=== PATIENT | female | born 1990 | race African-American/Black ===

== ENCOUNTER 2020-12-03 07:44 | Observation (INO) | payer BC, SELFPAY ==
[2020-12-03] VITALS (10 sets, daily range): BP systolic 111; BP diastolic 58; PULSE 79–92; O2SAT 98–100; BMI 27.8
--- NOTE | 2020-12-03 08:14 | OBADM ---
This patient, Tory Lerma, admitted to the OB room OB Post 116 for observation. Patient was oriented to hospital policies and general routines including ID bracelet, bed and alarms, visiting hours, pain management, procedures, bathroom and other care routines, personal items, smoking policy, room service/diet, call light, and visiting hours. Patient was encouraged to report perceived risks to care and to ask questions if she does not understand what she is told or what she should do.
[2020-12-03 08:54] LABS: Add Urine Microscopic? YES; Appearance Urine Cloudy (Clear); Bilirubin Urine Negative (Negative); Blood Urine Negative (Negative); Color Urine Yellow (Yellow); Glucose Urine UA Negative (Negative); Ketones Urine Negative (Negative); Leukocyte Esterase Ur Negative LEU/UL (Negative); Mucus Urine Rare /lpf; Nitrate Urine Negative (Negative); Protein Urine Negative (Negative); RBC Urine 0-2 /hpf (0-2); Specific Grav Ur 1.015 (1.001-1.035); Squamous Epithelial Cell Urine Occasional /hpf (Few); Urobilinogen Urine Negative mg/dL (<2.0); WBC Urine 0-3 /hpf
--- NOTE | 2020-12-03 10:19 | PC.NURSE ---
Pt informs RN that the Doctor had put her on pelvic rest at 0959. She is unclear if the doctor removed that restriction. Pt had intercourse with 48 hours of admission. RN instructed pt to remain on pelvic rest until her appt on December 06 when she will have a clarification discussion regarding pelvic rest.
--- NOTE | 2020-12-08 11:33 | P.PNOB_ITS ---
OB - Triage/Final Diagnosis Visit Information Comments/Additional reasons for admission: I have assessed the risk for this patient, Tory Lerma, and determined that she would benefit from observation care. Evaluation Laboratory results: Laboratory Tests 12/03/20 08:43 Urine Color Yellow Urine Appearance Cloudy H Urine pH 7.0 Ur Specific Grass Range 1.015 Urine Protein Negative Urine Glucose (UA) Negative Urine Ketones Negative Ur Blood (Man) Negative Urine Nitrate Negative Urine Bilirubin Negative Urine Urobilinogen Negative Leukocyte Esterase Rfl Negative Urine RBC 0-2 Urine WBC 0-3 Ur Squamous Epith Cells Occasional Urine Mucus Rare Final Diagnosis (1) contractions: Code(s): O47.9 - False labor, unspecified Status: Acute
== END 2020-12-03 10:15 | disposition home or self-care (01) ==
PROVIDERS: Admitting Provider Obstetrics & Gynecology; Visit Provider Obstetrics & Gynecology
DX: O47.9 False labor, unspecified (principal); Z3A.00 Weeks of gestation of pregnancy not specified
CPT/HCPCS: 81001; G0378; G0379

== ENCOUNTER 2021-01-09 15:23 | Outpatient (RCR) | payer BC, SELFPAY ==
--- NOTE | ~2021-01-09 | US_ITS ---
EXAMINATION: US OB BPP wo non-stress DATE: 01/05/2021 16:50 INDICATION: Intrauterine growth retardation. Assess biophysical profile. TECHNIQUE: Real-time pelvic ultrasound was performed. The interpreting radiologist was not present fo r the study. COMPARISON: None. FINDINGS: There is a single living fetus in vertex presentation. The placenta is anterior. heart rate is 157 beats per minute (bpm). Biophysical profile performed by the technologist: breathing (30 sec sustained breathing in 30 minutes): 2 out of 2 movement (3 gross body movements in 30 minutes): 2 out of 2 tone (one episode of jioyham-vbnxsilad-yavptyp limb movement): 2 out of 2 Amniotic fluid pocket (2 cm): 2 out of 2 Total score: 8 out of 8 IMPRESSION: 1. Single living fetus in vertex presentation with heart rate of 157 bpm. 2. Biophysical profile 8 out of 8. Reviewed, dictated and finalized at location A.
[2021-01-09 16:37] VITALS: BP 115/60; PULSE 91
== END 2021-01-16 08:15 | disposition home or self-care (01) ==
LOC: ANHOBOP 15:23
PROVIDERS: Visit Provider Obstetrics & Gynecology
DX: O36.5930 Maternal care for other known or suspected poor fetal growth, third trimester, not applicable or unspecified (principal); Z3A.35 35 weeks gestation of pregnancy; Z3A.36 36 weeks gestation of pregnancy
CPT/HCPCS: 59025; 76819

== ENCOUNTER 2021-01-14 07:25 | Inpatient (IN) | payer BC, SELFPAY ==
[2021-01-14] VITALS (28 sets, daily range): BP systolic 93–134; BP diastolic 53–101; PULSE 69–111; RESP 14–18; TEMP 36.2–37.3; O2SAT 100; BMI 28.2
[2021-01-14 09:05] LABS: Basophils Absolute Auto 0.1 K/mm3 (0.0-0.1); Basophils Percent Auto 0.6 % (0.2-1.2); Eosinophils Absolute Auto 0.1 K/mm3 (0-0.3); Eosinophils Percent Auto 0.5 % (0-4.4); Hematocrit 37.9 % (37.0-47.0); Hemoglobin 12.8 g/dL (12.0-15.0); Immature Granulocyte Absolute 0.05 K/mm3 (0.00-0.031); Immature Granulocyte Percent A 0.4 % (0-0.5); Lymphocytes Absolute Auto 1.72 K/mm3 (0.9-3.2); Lymphocytes Percent Auto 14.5 % (18.3-44.2); Mean Corpuscular HGB Conc 33.8 g/dl (32-36); Mean Corpuscular Hemoglobin 32.5 pg (26-34); Mean Corpuscular Volume 96.2 fl (80-100); Mean Platelet Volume 10.8 fl (7.4-10.4); Monocytes Absolute Auto 0.9 K/mm3 (0.1-0.6); Monocytes Percent Auto 7.4 % (2.6-8.5); Neutrophils Absolute Auto 9.1 K/mm3 (1.3-6.7); Neutrophils Percent Auto 76.6 % (45.5-73.1); Platelet Count Result 187 k/mm3 (150-375); Red Blood Count 3.94 M/mm3 (4.2-5.4); Red Cell Distribution Width 12.8 % (11.5-14.5); White Blood Count 11.9 K/mm3 (4.5-10.0)
[2021-01-14] MEDS: LACTATED RINGERS 1,000 ML 125 ML IV CONT (09:11)
[2021-01-14] MEDS: AMPICILLIN 2 GM/NS 100 ML 2 GM/100 ML BAG IVPB (09:13)
[2021-01-14] MEDS: OXYTOCIN 30 UNITS/NS 500 ML 30 UNITS/500 ML BAG IV CONT (09:25)
--- NOTE | 2021-01-14 09:25 | LDADM ---
This patient, Tory Lerma, was admitted to Labor/Delivery/Recovery 106 on 01/14/21 at 07:25. Plans for labor, pain management and were discussed with patient. Patient/family oriented to hospital policies and general routines including ID bracelet, bed and alarms, visiting hours, pain management, procedures, bathroom and other care routines, personal items, smoking policy, room service/diet and guest tray routines, security routines, and visiting hours. Patient/Family are encouraged to report perceived risks to care and to ask questions if they do not understand what they are told or what they should do. See OBIX for further documentation.
--- NOTE | 2021-01-14 10:05 | PM.IMHP ---
H&P: HPI History of Present Illness Date/Time: 01/14/21 09:43 Tory is a 30yo @ 37.0wks ([birth year]) who presented to L&D for concerns of ROM. ROM+ was negative but she was found to have a couple heart decelerations. She has severe IUGR and was already planned for IOl 01/16/21. She reports good movements. She reports irregular contractions. She denies vaginal bleeding. complicated by: - sIUGR; EFW <3%ile, normal dopplers - GBS unknown - H/o 3cm ELISABET on first trimester US - Mild anemia on iron Chief Complaint: leaking fluid Review of Systems Review of Systems: All systems reviewed & are unremarkable except as noted in HPI and below (HPI) [facility] Family History Family History Father Nonalcoholic fatty liver disease without nonalcoholic steatohepatitis ([place]) Sibling Nonalcoholic fatty liver disease without nonalcoholic steatohepatitis ([place]) Asthma Mother Hypertension Diabetes mellitus Social History Social History Substance use: never Gender identity (if verbalized by the patient): Female Spiritual care concerns: No Meds Home Medications and Allergies Home Medications Medication Instructions Recorded Confirmed Type docusate sodium [Colace] 100 mg PO BID 12/03/20 01/14/21 History [id number] fum-folic ac-om3 1 pkg PO DAILY 12/03/20 01/14/21 History ferrous sulfate [Iron (ferrous 325 mg PO BID 01/05/21 01/14/21 History sulfate)] Allergies Allergy/AdvReac Type Severity Reaction Status Date / Time No Known Allergies Allergy Verified 12/03/20 08:24 Vital Signs Vital Signs - 24 hr 01/14/21 09:00 01/14/21 09:24 01/14/21 09:30 Pulse Rate 80 86 82 Blood Pressure 109/66 107/62 119/70 Exam Const: General: cooperative, healthy appearing, comfortable and no acute distress Resp: Effort & Inspection: normal respiratory effort and able to speak in complete sentences Cardio: Rate: regular rate GI: Inspection: normal to inspection and non-distended GI Palp: No abdominal tenderness and Yes Soft to palpation : Other: FHT's: 140/mod chantel/ + accels/ late decel - otherwise reassuring TOCO: ctx's 2-4 min Cervix: 4/80/-1 Membranes: AROM, clear 0955 Presentation: cephalic Skin: General skin exam: normal color Neuro: General: patient oriented x3 Extrem: General: normal to inspection Psych: Appearance: grossly normal H&P: Results Labs Labs: Short CBC 01/14/21 Range/Units 08:55 WBC 11.9 H (4.5-10.0) K/mm3 Hgb 12.8 (12.0-15.0) g/dL Hct 37.9 (37.0-47.0) % Plt Count 187 (150-375) k/mm3 Assessment and Plan Assessment and plan (1) IUGR (intrauterine growth restriction): Status: Acute Additional Plan - Admitted for IOL due to sIUGR w/ late decel noted - Continuous monitoring; overall reassuring - Pitocin per protocol; currently at 4mu - GBS negative; received 1 dose of amp per hospital protocol - IV pain meds until active labor; pt declining epidural at this time
--- NOTE | 2021-01-14 10:37 | WPDHPUPDATE1 ---
History and Physical Update Update Date/Time: 01/14/21 10:37 History and Physical has been reviewed, including an updated exam of the patient. There are NO changes in the patient's condition. Risks, benefits, and alternatives have been discussed and questions answered. Patient agrees to proceed with procedure.
[2021-01-14] MEDS: fentaNYL CITRATE INJ (*CRX) 100 MCG/2 ML VIAL IV PUSH ×2 (12:02→13:08)
[2021-01-14] MEDS: AMPICILLIN 1 GM/NS 50 ML 1 GM/50 ML BAG IVPB (13:00)
--- NOTE | 2021-01-14 14:32 | PM.OBPRVD ---
OB - Delivery Note Procedure Delivery date: 01/14/21 events: Labor Induction (for sIUGR) Intrapartal events: Deceleration Induction method: per pitocin protocol Delivery augmentation: rupture of membranes Delivery monitor: external uterine and internal FHT Route of delivery: Laceration Description: Periurethral (bilateral; not bleeding) Quantitative Blood Loss (ml): 100 Anesthesia type: None [place] Baby Date of : 01/14/21 Time of : 13:56 Weeks of gestation at delivery: 37 gender: Female Weight (pounds): 5 Weight (ounces): 1 presentation: vertex position: Right Occiput Anterior Placenta delivery description: Expressed cord vessel description: 3 Vessels (short) score one minute: 8 score five minutes: 9 Narrative: Patient rapidly progressed to complete dilation with strong desire to push as she did not desire an epidural. With good maternal effort she pushed for approximately 10 minutes. She delivered the head over intact perineum. She then delivered the shoulders and body without complications. The had spontaneous cry. A short umbilical cord was noted. The umbilical cord was then clamped and cut and the was immediately placed skin to skin. A small segment of the cord was collected for cord gases. With Pitocin running and gentle downward traction on the cord, the placental delivered without complications. Bimanual massage was performed and good tone with was noted with minimal bleeding. The vagina and perineum were examined and small, bilateral mauro-uretheral lacerations were noted, but not bleeding. Cord blood was then collected for typing. Sponge, lap, and instrument counts were correct at the end the procedure. Mom and baby were left bonding in the birthing suite in a stable condition.
[2021-01-14] MEDS: OXYTOCIN 30 UNITS/NS 500 ML 30 UNITS/500 ML BAG 125 UNITS IV CONT (14:46)
[2021-01-14] MEDS: BENZOCAINE 20% AER SPR (*SP) 56 GM CAN 1 SPRAY TOPICAL (16:25)
[2021-01-14] MEDS: WITCH HAZEL 40 PADS 1 PAD TOPICAL (16:25)
--- NOTE | 2021-01-14 17:09 | OBPPTRN ---
Patient transferred to post room #284 via wheelchair. Oriented to unit, room, information board, rooming in, admission packet and security measures. Patient verbalizes understanding.
[2021-01-15 04:25] VITALS: BP 104/47; PULSE 77; RESP 13; TEMP 36.8; O2SAT 100
[2021-01-15 05:51] LABS: Hematocrit 35.2 % (37.0-47.0); Hemoglobin 11.7 g/dL (12.0-15.0)
[2021-01-15 07:45] VITALS: BP 104/68; PULSE 72; RESP 18; TEMP 36.6
--- NOTE | 2021-01-15 08:27 | P.PNOB_ITS ---
OB - PN: Subj Subjective Date/time seen: 01/15/21 08:20 PPD# 1 Tory reports doing well today. She reports her pain is controlled w/ PO meds. She reports her bleeding is light. She has tolerated regular diet. She has voided and passed gas. She has ambulated w/o symptoms of anemia. She would like to go home today. She is breast feeding. Elicia is doing well and also expected to be discharged home today as well. She denies fever, chills, CP, SOB, N/V, headache, vision changes, dizziness or palpitations. OB - PN: Obj Data Labs CBC & Chem 7: 01/15/21 04:32 Labs: Laboratory Results - last 24 hr 01/14/21 01/14/21 01/15/21 08:55 08:55 04:32 WBC 11.9 H RBC 3.94 L Hgb 12.8 11.7 L Hct 37.9 35.2 L MCV 96.2 MCH 32.5 MCHC 33.8 RDW 12.8 Plt Count 187 MPV 10.8 H Immature Gran % (Auto) 0.4 Neut % (Auto) 76.6 H Lymph % (Auto) 14.5 L Kidder % (Auto) 7.4 Eos % (Auto) 0.5 Baso % (Auto) 0.6 Lymph # (Auto) 1.72 Kidder # (Auto) 0.9 H Eos # (Auto) 0.1 Baso # (Auto) 0.1 Abs Immat Gran (auto) 0.05 H Absolute Neuts (auto) 9.1 H Absolute Nucleated RBC 0.0 Nucleated RBC % 0.0 Blood Type O Positive Antibody Screen Negative OB - PN A/P Assessment and Plan (1) IUGR (intrauterine growth restriction): Status: Acute (2) Status post vaginal delivery: Status: Acute Plan day: 1 Plan: routine care Comments: - Pelvic rest; take meds as prescribed - ER return precautions: fever, bleeding, HTN, n/v/abd pain - f/u in clinic in 4 wks Time Spent With Patient Time: Total time spent is greater than 50% in coordination of care (as documented) at patient's floor/unit and/or counseling patient: Review of Systems Review of Systems: All systems reviewed & are unremarkable except as noted in HPI and below (HPI) Exam Const: General: cooperative, healthy appearing, comfortable and no acute dis tress Resp: Effort & Inspection: normal respiratory effort and able to speak in complete sentences Auscultation: clear to auscultation bilaterally Cardio: Rate: regular rate GI: GI Palp: No abdominal tenderness and Yes Soft to palpation Auscultatio n: normal bowel sounds : Other: fundus firm Skin: General skin exam: normal color Neuro: General: patient oriented x3 Extrem: General: normal to inspection Psych: Appearance: grossly normal Affect: normal affect Attitude: cooperative
[2021-01-15] MEDS: TETANUS,DIPHTHERIA,AC PERTUSSIS ADULT (0.5 ML) BOOSTRIX IM (10:01)
[2021-01-15] MEDS: MULTIVIT/MIN/PREN/FOL AC/IRON TABLET 1 TAB PO (10:01)
--- NOTE | 2021-01-15 12:30 | PC.NURSE ---
Demonstrated to mom circumcision care when changing 's diaper. Mom states understanding.
[2021-01-15 14:00] VITALS: BP 114/68; PULSE 72; RESP 18; TEMP 37.2
[2021-01-16 08:36] VITALS: BP 102/65; PULSE 77; RESP 20; TEMP 36.9; O2SAT 99
[2021-01-17 08:25] LABS: Rapid Plasma Reagin Non-Reactive (NonReactive)
--- NOTE | 2021-01-25 13:57 | PM.OBDSVD ---
DS: Admitting Diagnosis Admitting Diagnosis Admitting Diagnosis: leaking fluid DS: Discharge Diagnosis Discharge Diagnosis (1) Status post vaginal delivery: Status: Acute (2) IUGR (intrauterine growth restriction): Status: Acute OB - DS: Summary OB Procedures : NST and Ultrasound OB Procedures Intrapartum: Spontaneous Vag Delivery OB Procedures: : None Peripartum Data Delivery Method: Natural Vaginal Laceration Description: Periurethral complications: none [place] 1: Gender: Female Disposition of : home Status at Discharge Functional status at discharge: independent ambulation Overall status at discharge: patient is back to baseline Time Spent with Patient Time attestation: Total time spent providing and/or coordinating discharge services: Time spent: Less than 30 minutes Exam Const: General: cooperative, healthy appearing, comfortable and no acute distress Resp: Effort & Inspection: normal respiratory effort and able to speak in complete sentences Auscultation: clear to auscultation bilaterally Cardio: Rate: regular rate GI: Inspection: normal to inspection and non-distended GI Palp: No abdominal tenderness and Yes Soft to palpation Auscultation: normal bowel sounds : Other: fundus firm Skin: General skin exam: normal color Neuro: General: patient oriented x3 Extrem: General: normal to inspection Psych: Appearance: grossly normal Affect: normal affect Attitude: cooperative DS: Data Data Completed and Pending Completed studies during hospitalization: Pending at discharge 01/14/21 14:01 Surgical [PTH] Routine Discharge Plan Discharge Attending physician on discharge: Birdie Estrada Discharging Clinician: Birdie Estrada Anticipated Discharge Date/Time: 01/15/21 15:00 Patient Disposition: Home, Self-Care Activity: pelvic rest Diet: regular Discharge Instructions: Education: Mom and Baby Guide Given to: Mother Follow-Up: Call your delivering provider's office for an appointment to be seen in: 4 Weeks Mom and baby should come to the [facility] for the follow-up appointment. Appointment Date/Time: January 16, 2021 at 8:00 am What to expect at your follow-up visit: Physical Assessment Call [phone] if you are unable to keep your appointment time. BREAST CARE: * Wear a snug supportive bra. * For engorgement discomfort: Breast Feeding: * Apply warm moist washcloths * Express milk as needed to relieve engorgement * Wear loose clothing * For sore nipples: * Identify correct latch-on * Apply warm moist washcloths before and after nursing * Air dry nipples after nursing * May apply Lansinoh cream to nipples PERINEAL CARE: * Until bleeding stops, use your mauro bottle after urinating * Change your pad frequently throughout the day * You may take sitz baths several times a day (fill your bathtub with warm water and soak for 20 minutes.) Do NOT bathe in the water * No tub baths until seen by your physician - You may shower ACTIVITY: * Rest as much as possible. * Do not exercise or lift anything heavier than your baby (such as laundry or other children.) * Avoid stairs or driving as much as possible. * Do not put anything into the vagina. No douching, tampons, or sexual activity until seen by physician. NOTIFY PHYSICIAN IF YOU HAVE ANY QUESTIONS OR IF ANY OF THE FOLLOWING SYMPTOMS OCCUR: * If your perineum becomes red, swollen, or more painful than what you have experienced in the hospital. * If your vaginal bleeding becomes foul smelling. * If your vaginal bleeding becomes more heavy than a period or if your bleeding changes from pink to bright red. However, you may pass an occasional walnut-sized clot once or twice for the first week . * If you experience a sharp, shooting pain in you calves. * If you discover
== END 2021-01-15 16:05 | disposition home or self-care (01) | DRG 807 ==
LOC: ANHLDR 08:37 → ANHOB2 17:12
PROVIDERS: Admitting Provider Obstetrics & Gynecology; Visit Provider Obstetrics & Gynecology
DX: O36.5930 Maternal care for other known or suspected poor fetal growth, third trimester, not applicable or unspecified (principal); Z37.0 Single live birth; Z3A.37 37 weeks gestation of pregnancy; O36.8330 Maternal care for abnormalities of the fetal heart rate or rhythm, third trimester, not applicable or unspecified; O71.82 Other specified trauma to perineum and vulva; O99.02 Anemia complicating childbirth; D64.9 Anemia, unspecified
CPT/HCPCS: 36415; 84112; 85014; 85018; 85025; 86592; 86850; 86900; 86901; 88307; 90715; A9270; J0290; J2590; J3010; J7120